=== PATIENT | female | born 1955 | race Caucasian/White ===

== ENCOUNTER 2017-04-01 08:34 | Outpatient (CLI) | payer BC | END 2017-04-01 08:35 | disposition critical access hospital (66) | LOC: EMS 08:34 | PROVIDERS: ATTEND Surgery | DX: R11.2 Nausea with vomiting, unspecified (principal); E86.0 Dehydration; R09.89 Other specified symptoms and signs involving the circulatory and respiratory systems | CPT/HCPCS: A0425; A0427 ==

== ENCOUNTER 2017-04-01 09:00 | Emergency (ER) | payer BC ==
[2017-04-01] MEDS ORDERED: diltiaZEM INJ 5 MG/ML VIAL IVP STA ×2 (09:08→12:18)
[2017-04-01] MEDS ORDERED: ONDANSETRON 4 MG/2 ML VIAL IVP STA (09:08)
[2017-04-01] MEDS ORDERED: SODIUM CHLORIDE 0.9% 1,000 ML IV ONE ×3 (09:08→14:36)
[2017-04-01] MEDS ORDERED: ONDANSETRON 4 MG/2 ML VIAL ONE (09:12)
[2017-04-01] MEDS ORDERED: diltiaZEM INJ 5 MG/ML VIAL ONE (09:14)
[2017-04-01] MEDS ORDERED: MORPHINE 2 MG/ML SYRINGE IVP STA (09:26)
[2017-04-01] MEDS ORDERED: MORPHINE 2 MG/ML SYRINGE ONE (09:33)
[2017-04-01 09:49] LABS: BASOPHILS % (AUTO) 0.2 %; EOSINOPHILS % (AUTO) 0.1 %; HGB - HEMOGLOBIN 15.6 g/dL (12.0-16.0); LYMPHOCYTES # (AUTO) 0.7 10^3/uL (1.5-3.5); LYMPHOCYTES % (AUTO) 7.8 %; MEAN CORPUSCULAR HEMOGLOBIN 30.1 pg (27.0-31.0); MEAN CORPUSCULAR VOLUME 88.5 fL (81.0-99.0); MEAN PLATELET VOLUME 7.6 fL (7.9-10.8); MONOCYTES # (AUTO) 0.2 10^3/uL (0.0-1.0); MONOCYTES % (AUTO) 2.8 %; NEUTROPHILS # (AUTO) 7.6 10^3/uL (1.5-6.6); NEUTROPHILS % (AUTO) 89.1 %; RED CELL DISTRIBUTION WIDTH 12.8 % (12.0-15.0); UNCORRECTED WHITE BLOOD COUNT 8.5 x10^3/uL; WHITE BLOOD COUNT 8.5 x10^3/uL (4.8-10.8)
--- NOTE | 2017-04-01 10:01 | XRAY Preliminary Report ---
Exam: XR Chest 1 View IMPRESSION: Normal single view chest. [facility] SITE ID: [id number]
[2017-04-01 10:02] LABS: ALBUMIN/GLOBULIN RATIO 1.8 (1.0-2.2); BILIRUBIN,TOTAL 1.3 mg/dL (0.2-1.0); CALCIUM 9.4 mg/dL (8.5-10.3); CREATININE 0.7 mg/dL (0.4-1.0); POTASSIUM 3.4 mmol/L (3.5-5.0); TOTAL PROTEIN 7.1 g/dL (6.7-8.2)
--- NOTE | 2017-04-01 10:03 | XRAY Report ---
EXAM: CHEST RADIOGRAPHY EXAM DATE: 04/01/2017 09:32 AM. CLINICAL HISTORY: Shortness of breath. COMPARISON: None. TECHNIQUE: 1 view. FINDINGS: Lungs/Pleura: No focal opacities evident. No pleural effusion. No pneumothorax. Mediastinum: Within exam limitations, cardiomediastinal contour is normal. Other: None. IMPRESSION: Normal single view chest. [facility] Referring Provider Line: [phone] SITE ID: [id number]
[2017-04-01] MEDS ORDERED: PROMETHAZINE INJ 12.5 MG in SODIUM CHLORIDE 0.9% 50 ML IV STA (10:19)
[2017-04-01] MEDS ORDERED: HYDROmorphone 1 MG/ML SYRINGE IVP STA ×2 (10:19→15:11)
--- NOTE | 2017-04-01 10:23 | ED Physician Documentation ---
PD HPI ABD PAIN - Stated complaint Stated Complaint: DEHYDRATION - Chief complaint Chief Complaint: General - History obtained from History obtained from: Patient - History of Present Illness Timing - onset: How many weeks ago (about 10 weeks) Timing - details: Still present (Getting progressively worse.) Quality: Pain Location: Other (upper abdomen predominantly) Worsened by: Eating, Moving Associated symptoms: Nausea, Vomiting, Diarrhea Recently seen: Clinic (She was seen this week in clinic for similar symptoms.CT scan of the abdomen and pelvis with contrast was performed yesterday. She was seen in clinic this morning and was noted to have a pulse of 160, and was sent to the emergency department by ambulance.) - Additional information Additional information: The patient is a 62-year-old female who arrives via ambulance complaining of abdominal pain, vomiting, and diarrhea. She has been lightheaded this morning, and was seen in clinic where she was found to have tachycardia of 160. She has no prior history of tachydysrhythmias. She reports having diarrhea for the past 10 weeks, with abdominal discomfort. This morning she has vomited multiple times. She reports decreased oral intake because even drinking water results and more diarrhea and discomfort. She reports past history of migraine headaches, and states she has been hospitalized twice with headaches with intractable vomiting. She reports having a headache last night, but it resolved after taking sumatriptan. She denies fever, cough, chest pain, or dysuria. She underwent CT scan of the abdomen and pelvis yesterday and it revealed very slight prominence of the common bile duct and pancreatic duct, which the radiologist described as an equivocal finding. The radiologist recommended further evaluation with ultrasound or MR imaging, or possibly ERCP, if clinically indicated. Review of Systems Constitutional: reports: Other (lightheaded). denies: Fever Ears: denies: Tinnitus/ringing Nose: denies: Congestion Throat: denies: Sore throat Cardiac: reports: Palpitations. denies: Chest pain / pressure Respiratory: denies: Dyspnea, Cough GI: reports: Abdominal Pain, Nausea, Vomiting, Diarrhea : denies: Dysuria Skin: denies: Rash Musculoskeletal: denies: Back pain Neurologic: reports: Generalized weakness. denies: Focal weakness, Numbness, Headache PD PAST MEDICAL HISTORY - Past Medical History Past Medical History: Yes Cardiovascular: None Respiratory: None Neuro: Headache/migraine Endocrine/Autoimmune: None GI: None : None HEENT: None Psych: None Musculoskeletal: Chronic back pain Derm: None - Past Surgical History General: Colonoscopy Ortho: Arthroscopic surgery, Other HEENT: Other - Present Medications Home Medications: Ambulatory Orders Medication Instructions Recorded Confirmed Esomeprazole Magnesium [Nexium] 0 mg PO DAILY 04/01/17 04/01/17 HYDROcod/ACETAM 5/325 [[place] 5/325] 1 - 2 ea PO Q6H PRN #20 tablet 04/01/17 Promethazine Supp [Phenergan Supp] 25 mg KS Q6HR PRN #10 supp 04/01/17 - Allergies Allergies/Adverse Reactions: Allergies Allergy/AdvReac Type Severity Reaction Status Date / Time No Known Drug Allergies Allergy Verified 10/14/15 11:45 - Social History Does the pt smoke?: No Smoking Status: Never smoker PD ED PE NORMAL - Vitals Vital signs reviewed: Yes (tachycardic) - General General: Alert and oriented X 3, Well developed/nourished, Other (Appears miserable.) - HEENT HEENT: Atraumatic, EOMI, Pharynx benign, Other (Dry oral mucosa.) - Neck Neck: Supple, no meningeal sign, No adenopathy, No JVD - Cardiac Cardiac: No murmur, Other (Rapid rate, regular rhythm.) - Respiratory Respiratory: No respiratory distress, Clear bilaterally - Abdomen Abdomen: Normal bowel sounds, Soft, No organomegaly, Other (Tenderness to palpation across the upper abdomen, without rebound tenderness or guarding.) - Back Back: No CVA TTP - Derm Derm: No rash - Extremities Extremities: No edema, No calf tenderness / cord - Neuro Neuro: Alert and oriented X 3, No motor deficit, No sensory deficit Results - Vitals Vitals: Oxygen O2 Source Room air - Labs Labs: Laboratory Tests 04/01/17 04/01/17 04/01/17 09:42 09:42 09:42 WBC 8.5 RBC 5.20 Hgb 15.6 Hct 46.0 MCV 88.5 MCH 30.1 MCHC 34.0 RDW 12.8 Plt Count 245 MPV 7.6 L Neut # 7.6 H Lymph # 0.7 L [place] # 0.2 Eos # 0.0 Baso # 0.0 Absolute Nucleated RBC 0.00 Nucleated RBCs 0.0 Sodium 139 Potassium 3.4 L Chloride 106 Carbon Dioxide 17 L Anion Gap 16.0 H BUN 16 Creatinine 0.7 Estimated GFR (MDRD) 85 L Glucose 158 H Lactic Acid Calcium 9.4 Total Bilirubin 1.3 H AST 28 ALT 23 Alkaline Phosphatase 50 Troponin I < 0.04 Total Protein 7.1 Albumin 4.6 Globulin 2.5 Albumin/Globulin Ratio 1.8 Lipase 20 L TSH Urine Color Urine Clarity Urine pH Ur Specific Bishop Urine Protein Urine Glucose (UA) Urine Ketones Urine Occult Blood Urine Nitrite Urine Bilirubin Urine Urobilinogen Ur Leukocyte Esterase Ur Microscopic Review Urine Culture Comments 04/01/17 04/01/17 04/01/17 09:43 10:26 15:30 WBC RBC Hgb Hct MCV MCH MCHC RDW Plt Count MPV Neut # Lymph # [place] # Eos # Baso # Absolute Nucleated RBC Nucleated RBCs Sodium Potassium Chloride Carbon Dioxide Anion Gap BUN Creatinine Estimated GFR (MDRD) Glucose Lactic Acid 1.3 Calcium Total Bilirubin AST ALT Alkaline Phosphatase Troponin I Total Protein Albumin Globulin Albumin/Globulin Ratio Lipase TSH 1.54 Urine Color YELLOW Urine Clarity CLEAR Urine pH 6.0 Ur Specific Bishop 1.025 Urine Protein TRACE Urine Glucose (UA) NEGATIVE Urine Ketones >=80 H Urine Occult Blood TRACE-INTA Urine Nitrite NEGATIVE Urine Bilirubin NEGATIVE Urine Urobilinogen 0.2 (NORMAL) Ur Leukocyte Esterase NEGATIVE Ur Microscopic Review NOT INDICATED Urine Culture Comments NOT INDICATED - Rads (name of study) CXR Radiology: Prelim report reviewed, EMP read contemporaneously, See rad report ( Normal single view chest.) Ultrasound RUQ Radiology: Prelim report reviewed, EMP read contemporaneously, See rad report ( The common bile duct of 7.1 mm, at upper limits of normal; no bile duct filling defect or intrahepatic bile duct dilatation. No cholelithiasis or cholecystitis.) PD MEDICAL DECISION MAKING - ED course Complexity details: reviewed old records, reviewed results, re-evaluated patient , considered differential, d/w patient, d/w family ED course: The patient's presentation is significant for profound dehydration with associated metabolic acidosis and tachycardia. Her dehydration is a result of vomiting, diarrhea, and decreased oral intake. The underlying cause of her abdominal symptoms is not clear. CT scan performed yesterday was nondiagnostic. An ultrasound in the emergency department today was unremarkable. CBC reveals a normal white count of 8.5. Chemistry panel is significant for a low serum bicarbonate of 17, consistent with mild metabolic acidosis. Urinalysis reveals concentrated urine with ketones of 80. Serum glucose is mildly elevated at 158. Treatment in the emergency department included administration of diltiazem 10 mg IV 2, normal saline 3 L IV, morphine 2 mg IV, followed by Dilaudid 1 mg IV 2, Zofran 4 mg IV, and Phenergan 12.5 mg IV. Over the course of her time in the emergency department the patient's symptoms significantly improved, and she subsequently demonstrated the ability to drink fluids without recurrent nausea or vomiting. She had no diarrhea over a course of 9-1/2 hours in the emergency department. The underlying cause of her abdominal symptoms is not ascertained. Her presentation does not suggest biliary colic, pancreatitis, appendicitis, or diverticulitis. Giardia is a consideration, but the patient had no stools from which to collect a specimen while in the emergency department. Historical factor that may be significant is travel to [place] in [facility] 1 week prior to onset of her symptoms. She is being discharged with prescriptions for Phenergan and for Vicodin, 20 tablets. I discussed with her and her the results of her workup, symptomatic treatment and outpatient follow-up, as well as potentially worrisome signs or symptoms that should prompt reevaluation in the emergency department. Departure - Departure Disposition: 01 Home, Self Care Clinical Impression: Dehydration, Tachycardia, Abdominal pain, vomiting, and diarrhea Condition: Stable Instructions: ED Dehydration, ED Abdominal Pain Unkn Cause Follow-Up: Nuvia Patten PA [Primary Care Provider] - Prescriptions: Promethazine Supp [Phenergan Supp] 25 mg KS Q6HR PRN #10 supp PRN Reason: Nausea / Vomiting HYDROcod/ACETAM 5/325 [[place] 5/325] 1 - 2 ea PO Q6H PRN #20 tablet PRN Reason: Pain Comments: Drink plenty of fluids. Use Phenergan as prescribed if needed for nausea. Use Vicodin as prescribed if needed for pain. Follow-up with parking meter mechanic as scheduled. Return to the emergency department if you develop increasing abdominal pain persistent vomiting, recurrent dehydration, or otherwise worsening symptoms. Discharge Date/Time: 04/01/17 18:34
[2017-04-01] MEDS ORDERED: HYDROmorphone 1 MG/ML SYRINGE ONE ×2 (10:34→15:22)
[2017-04-01] MEDS ORDERED: PROMETHAZINE 25 MG/1 ML VIAL ONE (10:34)
[2017-04-01 12:39] LABS: BILIRUBIN,URINE NEGATIVE (NEGATIVE)
[2017-04-01 12:42] LABS: UA CHARGE (STRIP ONLY) YES; UR CULTURE IF IND NOT INDICATED
--- NOTE | 2017-04-01 16:55 | Ultrasound Preliminary Report ---
Exam: US Abdomen Limited IMPRESSION: The common bile duct of 7.1 mm, at upper limits of normal; no bile duct filling defect or intrahepatic bile duct dilatation. No cholelithiasis or cholecystitis. [facility] SITE ID: [id number]
--- NOTE | 2017-04-01 16:58 | Ultrasound Report ---
EXAM: ABDOMEN ULTRASOUND LIMITED, RUQ EXAM DATE: 04/01/2017 04:32 PM. CLINICAL HISTORY: Upper abd pain; CT revealed CBD prominence. COMPARISON: None. TECHNIQUE: Real-time scanning was performed with static images obtained. FINDINGS: Liver: Normal in size and echotexture. 14.8 cm. Main portal vein flow: Hepatopetal. Gallbladder: Normal. No stones, wall thickening, or sonographic Hanson's sign. Biliary System: CBD measures 7.1 mm, at the upper limits of normal. No intrahepatic or extrahepatic d uctal dilatation. Other: No ascites. The visualized pancreatic body and right kidney are unremarkable. IMPRESSION: The common bile duct of 7.1 mm, at upper limits of normal; no bile duct filling defect or intrahepatic bile duct dilatation. No cholelithiasis or cholecystitis. [facility] Referring Provider Line: [phone] SITE ID: [id number]
[2017-04-01 18:33] VITALS: BP 155/70
== END 2017-04-01 18:34 | disposition home or self-care (01) ==
LOC: EDUNIT# → ED 09:00
DX: E86.0 Dehydration (principal); R00.0 Tachycardia, unspecified; I48.91 Unspecified atrial fibrillation; R94.31 Abnormal electrocardiogram [ECG] [EKG]
CPT/HCPCS: 36415; 71010; 76705; 80053; 81003; 83605; 83690; 84443; 84484; 85025; 93005; 96361; 96365; 96375; 96376; 99284; 99285; J1170; J2270; J7040; 81001; 87086

== ENCOUNTER 2017-12-28 09:34 | Outpatient (CLI) | payer OTHER ==
--- NOTE | 2017-12-29 16:22 | Mammography Report ---
Procedure Date: 12/28/2017 Accession Number: [id number] / [id number] Procedure: [facility] - Screening Mammo Dig Bilat CPT Code: FULL RESULT: EXAM: Screening Mammo Dig Bilat DATE: 12/28/2017 9:48 AM CLINICAL HISTORY: 62-year-old with history of late childbearing for screening TECHNIQUE: Bilateral CC and MLO views were obtained. COMPARISON: 01/01/2009 FINDINGS: The breasts demonstrate diffuse fatty replacement bilaterally. No suspicious masses, clustered microcalcifications, or regions of architectural distortion are identified. IMPRESSION: Negative examination RECOMMENDATION: Routine annual screening unless otherwise clinically indicated. BIRADS CATEGORY 1: Negative STANDARD QUALIFYING STATEMENTS: 1. This examination was reviewed with the aid of Computer-Aided Detection (CAD). 2. A negative or benign imaging report should not delay biopsy if clinically suspicious findings are present. Consider surgical consultation if warrented. More than 5% of cancers are not identified by imaging. 3. Dense breasts may obscure an underlying neoplasm.
== END 2017-12-28 09:35 | disposition home or self-care (01) ==
LOC: DI 09:34
PROVIDERS: ATTEND Physician Assistant
DX: Z12.31 Encounter for screening mammogram for malignant neoplasm of breast (principal)
CPT/HCPCS: 77067